=== PATIENT | male | born 1965 ===

== ENCOUNTER → 2019-05-19 | Outpatient (CLI) | payer OTHER | END | disposition home or self-care (01) | LOC: RAD 13:05 | DX: M19.90 Unspecified osteoarthritis, unspecified site (principal) ==

== ENCOUNTER 2019-05-27 07:13 | Outpatient (CLI) | payer OTHER | END 2019-05-27 07:15 | disposition home or self-care (01) | LOC: TOM 07:13 | DX: R10.84 Generalized abdominal pain (principal) | CPT/HCPCS: 74177; Q9965 ==

== ENCOUNTER 2025-09-05 10:16 | Outpatient (CLI) | payer OTHER ==
[~2025-09-05 10:16] MED LIST: CLONAZEP PO; GABAPENTIN100 MG PO; IBUPROFEN800 MG PO; LIDOCAINE PAIN1 EACH; NEURONTIN300 MG; NORFLEX100MG PO; PERCOCET 10-321 EACH PO; PERCOCET 5-3251 EACH PO; TRAZO PO; XARELTO10 MG PO; [UNRECOGNIZED DRUG - CODE] PO
== END 2025-09-05 10:27 | disposition home or self-care (01) ==
LOC: RAD 10:16
PROVIDERS: ATTEND Orthopaedic Surgery
DX: M25.561 Pain in right knee (principal); M25.562 Pain in left knee